=== PATIENT | male | born 1955 | race Caucasian/White ===

== ENCOUNTER 2016-12-07 09:29 | Outpatient (CLI) | payer BC | END 2016-12-07 09:30 | disposition home or self-care (01) | DX: G47.33 Obstructive sleep apnea (adult) (pediatric) (principal) ==

== ENCOUNTER 2017-06-23 13:17 | Outpatient (CLI) | payer BC ==
--- NOTE | 2017-06-23 17:08 | XRAY Report ---
THREE VIEW RIGHT KNEE: 06/23/2017 CLINICAL INDICATION: Pain. FINDINGS: Frontal, lateral, and sunrise views of the right knee demonstrate moderate osteoarthritis. There is no evidence of acute fracture or dislocation. No effusion is present. IMPRESSION: MODERATE OSTEOARTHRITIS. JOB #: [id number] EXT JOB #:[id number]
--- NOTE | 2017-06-24 09:06 | Ultrasound Report ---
RIGHT LEG ARTERIAL DUPLEX: 06/23/2017 CLINICAL INDICATION: Intermittent claudication. TECHNIQUE: Real-time sonographic vascular imaging was performed by the rad technologist through the lower extremities utilizing both color-flow and Doppler spectral analysis. Multiple farm loan representative static images were saved for review. RIGHT SIDE SITE PSV WAVEFORM STEN ASSISTANT PRODUCER 94 triphasic PSFA 97 triphasic MSFA 98 triphasic DSFA 97 triphasic PFA 72 triphasic POP 84 triphasic GORDON 22 triphasic RESIDENT PHYSICIAN IN RADIOLOGY 68 triphasic PER 28 triphasic DPA 56 triphasic LEFT SIDE SITE PSV WAVEFORM STEN ASSISTANT PRODUCER 118 triphasic FINDINGS: RIGHT LEG: Waveforms are predominantly triphasic. There is no evidence of a focal velocity increase to suggest a hemodynamically significant stenosis. IMPRESSION: NO EVIDENCE OF A HEMODYNAMICALLY SIGNIFICANT ARTERIAL STENOSIS IN THE RIGHT LEG. MTDD
== END 2017-06-23 13:18 | disposition home or self-care (01) ==
LOC: DI 13:17
PROVIDERS: ATTEND Family Medicine
DX: M17.11 Unilateral primary osteoarthritis, right knee (principal); I73.9 Peripheral vascular disease, unspecified

== ENCOUNTER 2017-09-15 12:11 | Outpatient (CLI) | payer BC ==
--- NOTE | 2017-09-15 17:53 | XRAY Report ---
THREE VIEW LEFT KNEE: 09/15/2017 CLINICAL INDICATION: Pain. Frontal and lateral views of the left knee demonstrate moderate osteoarthritis. There is no evidence of fracture. No effusion is present. No foreign body is seen. IMPRESSION: MODERATE OSTEOARTHRITIS. JOB #: [id number] EXT JOB #:[id number]
== END 2017-09-15 12:12 | disposition home or self-care (01) ==
LOC: DI 12:11
PROVIDERS: ATTEND Family Medicine
DX: M17.12 Unilateral primary osteoarthritis, left knee (principal)

== ENCOUNTER 2019-04-26 14:24 | Outpatient (CLI) | payer BC ==
--- NOTE | 2019-04-26 16:10 | XRAY Report ---
Reason: COUGH, WRIST PAIN,LEFT Procedure Date: 04/26/2019 Accession Number: [id number] / [id number] Procedure: XR - Chest 2 View X-Ray CPT Code: 72305 FULL RESULT: EXAM: CHEST RADIOGRAPHY EXAM DATE: 04/26/2019 03:03 PM. CLINICAL HISTORY: Persistent productive cough. COMPARISON: None. TECHNIQUE: 2 views. FINDINGS: Lungs/Pleura: No focal opacities evident. No pleural effusion. No pneumothorax. Normal volumes. Mediastinum: Heart and mediastinal contours are unremarkable. Other: None. IMPRESSION: No acute airspace disease. RADIA
--- NOTE | 2019-04-26 16:10 | XRAY Report ---
Reason: COUGH, WRIST PAIN,LEFT Procedure Date: 04/26/2019 Accession Number: [id number] / [id number] Procedure: XR - Wrist 3 View LT CPT Code: FULL RESULT: EXAM: LEFT WRIST RADIOGRAPHY EXAM DATE: 04/26/2019 03:03 PM. CLINICAL HISTORY: Complains of left wrist pain and palpable lump. Finding is marked with a BB. COMPARISON: KNEE 3 VIEW LT 09/15/2017 12:18 PM. TECHNIQUE: 3 views. FINDINGS: Bones: A mild sclerotic band is seen in the distal radius without definite cortical disruption, possibly prior fracture. No acute displaced fracture is seen. Joints: There is widening of the scapholunate interval consistent with ligamentous injury and early collapse of the carpal rows. Soft Tissues: The BB is seen overlying the dorsal soft tissues at the level of the first carpal row. 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 RADIA
== END 2019-04-26 14:25 | disposition home or self-care (01) ==
LOC: DI 14:24
PROVIDERS: ATTEND Family Medicine
DX: M25.532 Pain in left wrist (principal); R05 Cough
CPT/HCPCS: 71046

== ENCOUNTER 2021-02-28 08:00 | Outpatient (CLI) | payer MEDICARE, BC ==
[2021-02-28 11:48] LABS: BASOPHILS % (AUTO) 0.4 %; EOSINOPHILS # (AUTO) 0.1 10^3/uL (0.0-0.7); EOSINOPHILS % (AUTO) 1.8 %; HCT - HEMATOCRIT 46.9 % (42.0-52.0); HGB - HEMOGLOBIN 15.9 g/dL (14.0-18.0); LYMPHOCYTES # (AUTO) 1.6 10^3/uL (1.5-3.5); MEAN CORPUSCULAR HEMOGLOBIN 32.6 pg (27.0-31.0); MEAN CORPUSCULAR HGB CONC 33.9 g/dL (32.0-36.0); MEAN CORPUSCULAR VOLUME 96.3 fL (80.0-94.0); MEAN PLATELET VOLUME 11.4 fL (7.4-11.4); MONOCYTES # (AUTO) 0.4 10^3/uL (0.0-1.0); MONOCYTES % (AUTO) 7.7 %; NEUTROPHILS # (AUTO) 2.8 10^3/uL (1.5-6.6); NEUTROPHILS % (AUTO) 56.7 %; PLT - PLATELET COUNT 176 10^3/uL (130-450); RED BLOOD COUNT 4.87 10^6/uL (4.70-6.10); WHITE BLOOD COUNT 4.9 x10^3/uL (4.8-10.8)
[2021-02-28 12:03] LABS: ALBUMIN 4.7 g/dL (3.2-5.5); ALBUMIN/GLOBULIN RATIO 1.6 (1.0-2.2); ALKALINE PHOSPHATASE 55 IU/L (42-121); ALT ALANINE AMINOTRANSFERASE 28 IU/L (10-60); AST ASPARTATE AMINOTRANSFERASE 24 IU/L (10-42); BILIRUBIN,TOTAL 0.9 mg/dL (0.2-1.0); BUN - BLOOD UREA NITROGEN 17 mg/dL (6-20); CALCIUM 9.7 mg/dL (8.5-10.3); CARBON DIOXIDE - CO2 28 mmol/L (21-32); CHLORIDE 98 mmol/L (101-111); CHOL/HDL RATIO 5.1 (<5.0); CHOLESTEROL 300 mg/dL; CREATININE 0.8 mg/dL (0.6-1.2); GFR - MDRD 97 (>89); GLUCOSE 177 mg/dL (70-100); HDL CHOLESTEROL 59 mg/dL; LDL CHOLESTEROL,CALCULATED 193 mg/dL; LDL/HDL RATIO 3.3 (<3.6); POTASSIUM 4.1 mmol/L (3.5-5.0); SODIUM 136 mmol/L (135-145); TOTAL PROTEIN 7.6 g/dL (6.7-8.2); TRIGLYCERIDES 240 mg/dL; VLDL CHOLESTEROL 48 mg/dL
[2021-02-28 12:10] LABS: CREATININE,URINE 148.9 mg/dL; MICROALBUM/CREATININE RATIO,UR 1.3 ug/mg (<30.0); MICROALBUMIN,URINE 0.2 mg/dL (0-300.0)
[2021-02-28 12:15] LABS: ESTIMATED AVERAGE GLUCOSE 171 mg/dL (70-100); HEMOGLOBIN A1c% 7.6 % (4.27-6.07); THYROID STIMULATING HORMONE 1.38 uIU/mL (0.34-5.60)
== END 2021-02-28 23:59 | disposition home or self-care (01) ==
LOC: LAB.WCP 08:00
PROVIDERS: ATTEND Family Medicine
DX: E11.9 Type 2 diabetes mellitus without complications (principal); Z12.5 Encounter for screening for malignant neoplasm of prostate; E29.1 Testicular hypofunction
CPT/HCPCS: 36415; 80053; 80061; 82043; 82570; 83036; 84403; 84443; 85025; G0103; 83721; 84153

== ENCOUNTER 2021-04-17 14:28 | Outpatient (CLI) | payer MEDICARE, BC ==
--- NOTE | 2021-04-17 17:39 | XRAY Report ---
PROCEDURE: Shoulder 2 View RT INDICATIONS: R shoulder pain TECHNIQUE: 2 views of the shoulder were acquired. COMPARISON: None. FINDINGS: Bones: No fractures or dislocations. There is mild acromioclavicular and glenohumeral joint degenera tion. No suspicious bony lesions. Visualized ribs appear intact. Soft tissues: No suspicious soft tissue calcifications. IMPRESSION: 1. Mild acromioclavicular and glenohumeral joint degeneration. Reviewed by: David Mtz MD on 04/17/2021 5:38 PM PDT Approved by: David Mtz MD on 04/17/2021 5:38 PM PDT Station ID: [id number]
--- NOTE | 2021-04-17 18:15 | XRAY Report ---
PROCEDURE: Knee Standing BILAT INDICATIONS: bilateral knee pain TECHNIQUE: 3 views of the right knee, and 3 views of the left knee. COMPARISON: None. FINDINGS: Right knee: Bones: No acute fractures or dislocations. No suspicious bony lesions. Severe degenerative arthriti s with tricompartment osteophytosis and medial compartment joint space obliteration. Soft tissues: Small knee joint effusions. No suspicious soft tissue calcification. Left knee: Bones: No acute fractures or dislocations. No suspicious bony lesions. Severe degenerative arthriti s with tricompartmental osteophytes and medial joint space obliteration. There is lateral subluxation of the tibia relative to the femur. Soft tissues: Small knee joint effusions. No suspicious soft tissue calcification. IMPRESSION: Severe bilateral knee joint degenerative arthritis. Reviewed by: Sharad Wang MD on 04/17/2021 5:13 PM SHABANA Approved by: Sharad Wang MD on 04/17/2021 5:13 PM SHABANA Station ID: [id number]
== END 2021-04-17 14:29 | disposition home or self-care (01) ==
LOC: DI 14:28
PROVIDERS: ATTEND Anesthesiology
DX: M25.511 Pain in right shoulder (principal); M25.561 Pain in right knee; M25.562 Pain in left knee; M19.011 Primary osteoarthritis, right shoulder; M17.0 Bilateral primary osteoarthritis of knee

== ENCOUNTER 2021-08-25 07:00 | Outpatient (CLI) | payer MEDICARE, BC ==
[2021-08-25 11:56] LABS: ESTIMATED AVERAGE GLUCOSE 160 mg/dL (70-100); HEMOGLOBIN A1c% 7.2 % (4.27-6.07)
[2021-08-25 12:10] LABS: BASOPHILS % (AUTO) 0.2 %; EOSINOPHILS # (AUTO) 0.1 10^3/uL (0.0-0.7); EOSINOPHILS % (AUTO) 1.5 %; HCT - HEMATOCRIT 48.2 % (42.0-52.0); LYMPHOCYTES # (AUTO) 1.2 10^3/uL (1.5-3.5); LYMPHOCYTES % (AUTO) 28.9 %; MEAN CORPUSCULAR HGB CONC 33.2 g/dL (32.0-36.0); MEAN CORPUSCULAR VOLUME 96.4 fL (80.0-94.0); MONOCYTES # (AUTO) 0.3 10^3/uL (0.0-1.0); MONOCYTES % (AUTO) 8.2 %; NEUTROPHILS # (AUTO) 2.4 10^3/uL (1.5-6.6); PLT - PLATELET COUNT 163 10^3/uL (130-450); RED CELL DISTRIBUTION WIDTH 12.4 % (12.0-15.0)
[2021-08-25 12:23] LABS: ALBUMIN 4.6 g/dL (3.2-5.5); ALBUMIN/GLOBULIN RATIO 1.5 (1.0-2.2); ALKALINE PHOSPHATASE 51 IU/L (42-121); ALT ALANINE AMINOTRANSFERASE 21 IU/L (10-60); AST ASPARTATE AMINOTRANSFERASE 23 IU/L (10-42); BILIRUBIN,TOTAL 1.3 mg/dL (0.2-1.0); BUN - BLOOD UREA NITROGEN 13 mg/dL (6-20); CALCIUM 9.7 mg/dL (8.5-10.3); CARBON DIOXIDE - CO2 30 mmol/L (21-32); CHLORIDE 101 mmol/L (101-111); CHOL/HDL RATIO 4.1 (<5.0); CHOLESTEROL 260 mg/dL; CREATININE 0.8 mg/dL (0.6-1.2); GFR - MDRD 97 (>89); GLUCOSE 147 mg/dL (70-100); HDL CHOLESTEROL 64 mg/dL; LDL CHOLESTEROL,CALCULATED 165 mg/dL; LDL/HDL RATIO 2.6 (<3.6); POTASSIUM 3.9 mmol/L (3.5-5.0); SODIUM 140 mmol/L (135-145); TOTAL PROTEIN 7.7 g/dL (6.7-8.2); TRIGLYCERIDES 155 mg/dL; VLDL CHOLESTEROL 31 mg/dL
== END 2021-08-25 23:59 | disposition home or self-care (01) ==
LOC: LAB.WCP 07:00
PROVIDERS: ATTEND Family Medicine
DX: E11.9 Type 2 diabetes mellitus without complications (principal)
CPT/HCPCS: 36415; 80053; 80061; 83036; 83721; 84403; 85025

== ENCOUNTER 2021-08-28 07:00 | Outpatient (CLI) | payer MEDICARE, BC | END 2021-08-28 23:59 | disposition home or self-care (01) | LOC: LAB 07:00 | PROVIDERS: ATTEND Family Medicine | DX: R53.83 Other fatigue (principal) | CPT/HCPCS: 81599; 82530 ==

== ENCOUNTER 2022-02-23 08:27 | Outpatient (CLI) | payer MEDICARE, OTHER ==
[2022-02-23 12:29] LABS: BASOPHILS % (AUTO) 0.2 %; EOSINOPHILS % (AUTO) 0.9 %; HCT - HEMATOCRIT 48.2 % (42.0-52.0); HGB - HEMOGLOBIN 16.3 g/dL (14.0-18.0); LYMPHOCYTES # (AUTO) 1.3 10^3/uL (1.5-3.5); LYMPHOCYTES % (AUTO) 29.6 %; MEAN CORPUSCULAR HEMOGLOBIN 31.5 pg (27.0-31.0); MEAN CORPUSCULAR HGB CONC 33.8 g/dL (32.0-36.0); MEAN CORPUSCULAR VOLUME 93.2 fL (80.0-94.0); MEAN PLATELET VOLUME 10.9 fL (7.4-11.4); MONOCYTES # (AUTO) 0.4 10^3/uL (0.0-1.0); MONOCYTES % (AUTO) 9.7 %; NEUTROPHILS # (AUTO) 2.5 10^3/uL (1.5-6.6); NEUTROPHILS % (AUTO) 58.7 %; PLT - PLATELET COUNT 187 10^3/uL (130-450); RED BLOOD COUNT 5.17 10^6/uL (4.70-6.10); RED CELL DISTRIBUTION WIDTH 11.9 % (12.0-15.0); WHITE BLOOD COUNT 4.3 x10^3/uL (4.8-10.8)
[2022-02-23 12:47] LABS: ALBUMIN 4.6 g/dL (3.2-5.5); ALBUMIN/GLOBULIN RATIO 1.4 (1.0-2.2); ALKALINE PHOSPHATASE 57 IU/L (42-121); ALT ALANINE AMINOTRANSFERASE 28 IU/L (10-60); AST ASPARTATE AMINOTRANSFERASE 29 IU/L (10-42); BILIRUBIN,TOTAL 1.2 mg/dL (0.2-1.0); BUN - BLOOD UREA NITROGEN 15 mg/dL (6-20); CALCIUM 9.8 mg/dL (8.5-10.3); CARBON DIOXIDE - CO2 29 mmol/L (21-32); CHLORIDE 97 mmol/L (101-111); CHOL/HDL RATIO 4.8 (<5.0); CHOLESTEROL 286 mg/dL; CREATININE 0.8 mg/dL (0.6-1.2); GFR - MDRD 96 (>89); GLUCOSE 220 mg/dL (70-100); HDL CHOLESTEROL 60 mg/dL; LDL CHOLESTEROL,CALCULATED 197 mg/dL; LDL/HDL RATIO 3.3 (<3.6); POTASSIUM 3.9 mmol/L (3.5-5.0); SODIUM 136 mmol/L (135-145); TRIGLYCERIDES 146 mg/dL; VLDL CHOLESTEROL 29 mg/dL
[2022-02-23 12:53] LABS: CREATININE,URINE 88.3 mg/dL; MICROALBUM/CREATININE RATIO,UR 4.5 ug/mg (<30.0); MICROALBUMIN,URINE 0.4 mg/dL (0-300.0)
[2022-02-23 13:04] LABS: ESTIMATED AVERAGE GLUCOSE 180 mg/dL (70-100); HEMOGLOBIN A1c% 7.9 % (4.27-6.07)
== END 2022-02-23 08:28 | disposition home or self-care (01) ==
LOC: LAB.N 08:27
PROVIDERS: ATTEND Family Medicine
DX: E11.9 Type 2 diabetes mellitus without complications (principal); Z12.5 Encounter for screening for malignant neoplasm of prostate; E29.1 Testicular hypofunction
CPT/HCPCS: 36415; 80053; 80061; 82043; 82570; 83036; 84402; 84403; 85025; G0103; 81599; 83721; 84153

== ENCOUNTER 2024-05-19 08:26 | Outpatient (CLI) | payer MEDICARE, OTHER ==
[2024-05-19 11:57] LABS: BASOPHILS % (AUTO) 0.2 %; EOSINOPHILS % (AUTO) 0.9 %; HCT - HEMATOCRIT 49.4 % (42.0-52.0); HGB - HEMOGLOBIN 16.5 g/dL (14.0-18.0); LYMPHOCYTES % (AUTO) 21.9 %; MEAN CORPUSCULAR HEMOGLOBIN 32.7 pg (27.0-31.0); MEAN CORPUSCULAR HGB CONC 33.4 g/dL (32.0-36.0); MEAN PLATELET VOLUME 10.9 fL (7.4-11.4); MONOCYTES # (AUTO) 0.5 10^3/uL (0.0-1.0); MONOCYTES % (AUTO) 10.7 %; NEUTROPHILS % (AUTO) 65.9 %; PLT - PLATELET COUNT 198 10^3/uL (130-450); RED BLOOD COUNT 5.04 10^6/uL (4.70-6.10); RED CELL DISTRIBUTION WIDTH 12.6 % (12.0-15.0); WHITE BLOOD COUNT 4.6 x10^3/uL (4.8-10.8)
[2024-05-19 12:18] LABS: ALBUMIN 4.4 g/dL (3.2-5.5); ALBUMIN/GLOBULIN RATIO 1.3 (1.0-2.2); ALKALINE PHOSPHATASE 49 IU/L (42-121); ALT ALANINE AMINOTRANSFERASE 19 IU/L (10-60); AST ASPARTATE AMINOTRANSFERASE 28 IU/L (10-42); BILIRUBIN,TOTAL 0.9 mg/dL (0.2-1.0); BUN - BLOOD UREA NITROGEN 15 mg/dL (6-20); CARBON DIOXIDE - CO2 30 mmol/L (21-32); CHLORIDE 97 mmol/L (101-111); CHOL/HDL RATIO 5.4 (<5.0); CHOLESTEROL 265 mg/dL; CREATININE 0.8 mg/dL (0.6-1.3); GFR - MDRD 96 (>89); GLUCOSE 238 mg/dL (74-104); HDL CHOLESTEROL 49 mg/dL; LDL CHOLESTEROL,CALCULATED 162 mg/dL; LDL/HDL RATIO 3.3 (<3.6); SODIUM 132 mmol/L (135-145); TOTAL PROTEIN 7.8 g/dL (6.4-8.9); TRIGLYCERIDES 268 mg/dL; VLDL CHOLESTEROL 54 mg/dL
[2024-05-19 12:30] LABS: THYROID STIMULATING HORMONE 1.24 uIU/mL (0.34-5.60)
[2024-05-19 12:39] LABS: ESTIMATED AVERAGE GLUCOSE 212 mg/dL (70-100)
== END 2024-05-19 08:27 | disposition home or self-care (01) ==
LOC: LAB.N 08:26
PROVIDERS: ATTEND Physician Assistant
DX: E11.65 Type 2 diabetes mellitus with hyperglycemia (principal); E29.1 Testicular hypofunction; R53.83 Other fatigue
CPT/HCPCS: 36415; 80053; 80061; 82607; 82670; 82746; 83002; 83036; 83721; 84402; 84403; 84443; 85025

== ENCOUNTER 2024-06-28 08:00 | Outpatient (CLI) | payer MEDICARE, OTHER ==
[2024-06-28 16:55] LABS: BILIRUBIN,URINE NEGATIVE (NEGATIVE); GLUCOSE, URINE (UA) 500 mg/dL (NEGATIVE); KETONES,URINE (UA) NEGATIVE (NEGATIVE); LEUKOCYTE ESTERASE, URINE TRACE (NEGATIVE); NITRITE,URINE NEGATIVE (NEGATIVE); OCCULT BLOOD,URINE NEGATIVE (NEGATIVE); PROTEIN,URINE NEGATIVE (NEGATIVE); UROBILINOGEN,URINE 0.2 (NORMAL) E.U./dL (NORMAL)
[2024-06-28 17:00] LABS: CLARITY,URINE CLEAR (CLEAR)
[2024-06-28 17:04] LABS: BACTERIA,URINE Rare /HPF (None Seen); RBC,URINE 0-5 /HPF (0-5); SQUAMOUS EPITHELIAL CELL,UR NONE SEEN (<= Few)
== END 2024-06-28 23:59 | disposition home or self-care (01) ==
LOC: LAB.N 08:00
PROVIDERS: ATTEND Urology
DX: R35.0 Frequency of micturition (principal)
CPT/HCPCS: 81001; 87086